=== PATIENT | male | born 1950 | race Two or more races ===

== ENCOUNTER 2024-08-02 18:34 | Emergency (ER) | payer OTHER ==
[~2024-08-02] VITALS: Ht 175.3 cm; Wt 83.9 kg
[2024-08-02] MEDS ORDERED: DIOVAN160 M1 PO (19:00)
[2024-08-02] MEDS ORDERED: LOSARTAN-HCTZ1 EAC2 PO (19:01)
[2024-08-02] MEDS ORDERED: GLUMETZA500 MG PO (19:02)
[2024-08-02] MEDS ORDERED: SIMVASTATIN80 MG PO (19:02)
[2024-08-02] MEDS ORDERED: FAMOtidine 10 MG/ML (4ML VIAL) IV ONE (19:30)
[2024-08-02] MEDS ORDERED: KETOROLAC TROMETHAMINE 60 MG VIAL IM ONE (19:30)
[2024-08-02] MEDS ORDERED: 0.9 % SODIUM CHLORIDE 1,000 ML IV ONE (19:30)
[2024-08-02 20:39] LABS: HEMATOCRIT 47.7 % (39.0-48.0); HEMOGLOBIN 16.2 g/dL (13-16.00); MEAN CELL VOLUME 91.8 fL (80.0-100.00); MEAN CORPUSCULAR HEMOGLOBIN 31.2 pg (27.00-32.0); PLATELET COUNT 223 K/uL (150-450); RED BLOOD COUNT 5.19 M/uL (4.00-6.00); RED CELL DISTRIBUTION WIDTH 13.9 % (11.5-14.5)
[2024-08-02 20:43] LABS: ABG PH 7.427 (7.35-7.45); ABG PO2 78.2 mmHg (80-100); ABG pCO2 37.5 mmHg (35-45); BASE EXCESS 0.1 mmol/l; BICARBONATE 24.2 mmol/l (23-25); SaO2 95.8 %; Tco2 25.3 mmol/l
[2024-08-02 20:47] LABS: PH,URINE 7.5 (5.0-8.0); URINE APPEARANCE Clear; URINE BILIRRUBIN Negative (NEGATIVE); URINE BLOOD Small; URINE COLOR Yellow; URINE GLUCOSE Negative (NEGATIVE); URINE KETONE 15 (NEGATIVE); URINE LEUKOCYTE Negative; URINE NITRATE Negative; URINE PROTEIN 30 (NEGATIVE); URINE UROBILINOGEN 0.2 E.U./dl
[2024-08-02 20:51] LABS: URINE RBC 41.2 uL (0.0-20.8)
[2024-08-02 21:00] LABS: URINE BACTERIA 1.2 uL (0.0-1933); URINE EPITHELIAL CELLS 0.4 uL (0.0-38.8); URINE WBC 0.3 uL (0.0-23.2)
[2024-08-02 21:04] LABS: INR 1.1; PARTIAL THROMBOPLASTIN TIME 26.9 SECONDS (22.0-34.0); PROTHROMBIN TIME 11.9 SECONDS (9.0-11.5)
[2024-08-02 21:08] LABS: ALBUMIN 4.5 gm/dL (3.4-5.0); BILIRUBIN TOTAL 0.72 mg/dL (0.3-1.2); CALCIUM 9.7 mg/dL (8.5-10.1); CREATININE SERUM 1.21 mg/dL (0.70-1.30); GFR 59.11; GLOBULINA 4.1 G/DL (2.4-3.5); POTASSIUM 3.9 mEq/L (3.5-5.1); TOTAL PROTEIN 8.6 gm/dL (6.4-8.2)
[2024-08-02 21:19] LABS: allen test SATISFACTORY; puncture site RADIAL RIGHT
[2024-08-02 21:20] LABS: o2 21 %
[2024-08-02] MEDS ORDERED: LABETALOL HCL 20MG/4ML SYRINGE IV ONE (21:30)
[2024-08-02] MEDS ORDERED: NIFEDIPINE 10 MG CAPSULE PO ONE (21:30)
[2024-08-02] MEDS ORDERED: KETO10TA2 PO (23:38)
[2024-08-02] MEDS ORDERED: BACTRIM DS TAB1 EACH PO (23:38)
[2024-08-02] MEDS ORDERED: ZOFRAN8 MG PO (23:38)
[2024-08-02] MEDS ORDERED: TAMS0.4C PO (23:38)
[2024-08-02] MEDS ORDERED: PEPCID AC20 MG PO (23:38)
[2024-08-02] MEDS ORDERED: KETOROLAC TROMETHAMINE 30 MG VIAL IM ONE (23:45)
== END 2024-08-03 00:18 | disposition home or self-care (01) ==
LOC: ER 18:36
PROVIDERS: General Practice
DX: N20.0 Calculus of kidney (principal); R10.31 Right lower quadrant pain; Z88.6 Allergy status to analgesic agent; E78.00 Pure hypercholesterolemia, unspecified; I10 Essential (primary) hypertension; Z85.828 Personal history of other malignant neoplasm of skin; E11.9 Type 2 diabetes mellitus without complications; Z79.84 Long term (current) use of oral hypoglycemic drugs; N20.1 Calculus of ureter
CPT/HCPCS: 36415; 74177; 82803; 93005; 96365; 96372; 99284; J1885; J3490; J7030; Q9965

== ENCOUNTER 2024-12-02 14:43 | Emergency (ER) | payer OTHER ==
[~2024-12-02] VITALS: Ht 175.3 cm; Wt 85.7 kg
[~2024-12-02 14:43] MED LIST: BACTRIM DS TAB1 EACH PO; DIOVAN160 M1 PO; GLUMETZA500 MG PO; KETO10TA2 PO; LOSARTAN-HCTZ1 EAC2 PO; PEPCID AC20 MG PO; SIMVASTATIN80 MG PO; TAMS0.4C PO; ZOFRAN8 MG PO
[2024-12-02] MEDS ORDERED: MORPHINE SULFATE 4 MG/ML VIAL IV ONE (15:45)
[2024-12-02 16:53] LABS: HEMATOCRIT 49.8 % (39.0-48.0); HEMOGLOBIN 16.2 g/dL (13-16.00); MEAN CELL VOLUME 91.4 fL (80.0-100.00); MEAN CORPUSCULAR HEMOGLOBIN 29.8 pg (27.00-32.0); MEAN CORPUSCULAR HGB CONC 32.6 g/dl (32.0-36.0); PLATELET COUNT 234 K/uL (150-450); RED BLOOD COUNT 5.45 M/uL (4.00-6.00); RED CELL DISTRIBUTION WIDTH 13.7 % (11.5-14.5)
[2024-12-02 17:23] LABS: ALBUMIN 4.4 gm/dL (3.4-5.0); BILIRUBIN TOTAL 0.56 mg/dL (0.3-1.2); CALCIUM 9.9 mg/dL (8.5-10.1); CREATININE SERUM 1.16 mg/dL (0.70-1.30); GFR 61.89; GLOBULINA 4.1 G/DL (2.4-3.5); POTASSIUM 4.21 mEq/L (3.5-5.1); TOTAL PROTEIN 8.5 gm/dL (6.4-8.2)
[2024-12-02 17:23] LABS: URINE APPEARANCE Clear; URINE BILIRRUBIN Negative (NEGATIVE); URINE BLOOD Moderate; URINE COLOR Yellow; URINE GLUCOSE Negative (NEGATIVE); URINE KETONE Trace (NEGATIVE); URINE LEUKOCYTE Negative; URINE NITRATE Negative; URINE PROTEIN Trace (NEGATIVE); URINE UROBILINOGEN 0.2 E.U./dl
[2024-12-02 17:31] LABS: URINE BACTERIA 6.1 uL (0.0-1933); URINE EPITHELIAL CELLS 1.8 uL (0.0-38.8); URINE RBC 93.9 uL (0.0-20.8)
[2024-12-02 17:41] LABS: URINE CAST 0.73 uL (0.0-1.40); URINE WBC 0.9 uL (0.0-23.2)
[2024-12-02] MEDS ORDERED: KETO10TA2 PO (19:17)
[2024-12-02] MEDS ORDERED: CEPHALEXIN500 MG PO (19:17)
== END 2024-12-02 20:11 | disposition home or self-care (01) ==
LOC: ER 14:43
PROVIDERS: Emergency Medicine; General Practice
DX: N20.1 Calculus of ureter (principal); R10.9 Unspecified abdominal pain; I10 Essential (primary) hypertension; E11.9 Type 2 diabetes mellitus without complications; Z79.84 Long term (current) use of oral hypoglycemic drugs; Z88.6 Allergy status to analgesic agent
CPT/HCPCS: 36415; 74176; 96365; 99284; J2270